=== PATIENT | female | born 1970 | race Caucasian/White ===

== ENCOUNTER 2016-10-09 10:20 | Emergency (ER) | payer BC ==
[~2016-10-09] VITALS: Ht 170.2 cm; Wt 54.5 kg
[~2016-10-09 10:20] MED LIST: AUGMENTIN875 MG PO; BUSPAR5 MG PO; DELTASONE20 M1 PO; LORTAB 5-325 M1 EACH PO; TRAZODONE HCL50 MG PO; ZOFRAN ODT4 MG PO; ZOLOFT100 MG PO
[2016-10-09 11:55] LABS: EOSINOPHIL (%) 1.1 % (0-5); EOSINOPHIL COUNT 0.1 K/uL (0-0.3); HEMATOCRIT 40.1 % (36.0-46.0); IMMATURE GRANULOCYTE (%) 0.1 % (0.0-0.7); INSTRUMENT ABS NEUTROPHIL CT 5.4 K/uL; LYMPHOCYTE COUNT 1.7 K/uL (1.0-2.8); MCH 29.2 PG (29.0-34.0); MCHC 33.9 G/DL (30.0-36.0); MCV 86.1 FL (83-99); MONOCYTE (%) 5.1 % (3-12); MONOCYTE COUNT 0.4 K/uL (0-0.8); NEUTROPHIL (%) 71.6 % (45-76); NEUTROPHIL COUNT 5.4 K/uL (1.8-6.4); PLATELET COUNT 276 K/uL (156-360); RBC DIS.WIDTH-CV 12.9 % (11.8-14.6); RBC DIS.WIDTH-SD 40.2 % (39-53); RED BLOOD COUNT 4.66 M/uL (3.80-5.20); WHITE BLOOD COUNT 7.6 K/uL (4.1-10.2)
[2016-10-09 12:05] LABS: CHLORIDE 105 mEq/L (99-109)
[2016-10-09 12:06] LABS: POTASSIUM 3.5 mEq/L (3.7-5.4); SODIUM 140 mEq/L (136-147)
[2016-10-09 12:08] LABS: GLUCOSE 113 mg/dL (70-99)
[2016-10-09 12:09] LABS: ANION GAP 15 MEQ/L (2-14)
[2016-10-09 12:10] LABS: TOTAL BILIRUBIN 0.6 mg/dL (0.0-1.0)
[2016-10-09 12:11] LABS: ALKALINE PHOSPHATASE 64 IU/L (3-129); GFR ESTIMATE (CALCULATED) > 59 mL/min/
[2016-10-09 12:13] LABS: UREA NITROGEN (BUN) 16 mg/dL (9-23)
[2016-10-09 12:15] LABS: LIPASE 38 U/L (1.0-51.0)
[2016-10-09 12:22] LABS: QUANTITATIVE HCG < 4.0 MIU/ML
[2016-10-09 14:42] LABS: ADD MIUA? YES; BILIRUBIN NEGATIVE; BLOOD NEGATIVE; COLOR YELLOW ((YELLOW)); GLUCOSE (STRIP) NEGATIVE; KETONES 5; LEUKOCYTES TRACE; NITRITE NEGATIVE; PROTEIN (STRIP) NEGATIVE; SPECIFIC GRAVITY 1.044 (1.000-1.030); UROBILINOGEN 0.2 MG/DL (0.2-1.0)
[2016-10-09 14:57] LABS: BACTERIA RARE /HPF; EPITHELIAL CELLS 2+ /HPF; MUCUS TRACE /LPF; RED BLOOD CELLS NONE SEEN /HPF (0-5); WHITE BLOOD CELLS 0-5 /HPF (0-5)
[2016-10-09] MEDS ORDERED: ZOFRAN ODT4 MG PO (20:10)
[2016-10-09 20:49] VITALS: BP 111/58
[2016-10-10] MEDS ORDERED: ZOFRAN4 MG PO (17:33)
== END 2016-10-09 20:51 | disposition home or self-care (01) ==
LOC: EME → EDBD 10:20 → EME 20:51
PROVIDERS: Emergency Medicine
DX: D25.9 Leiomyoma of uterus, unspecified (principal); R10.31 Right lower quadrant pain; R11.2 Nausea with vomiting, unspecified; R30.0 Dysuria; Z79.52 Long term (current) use of systemic steroids
CPT/HCPCS: 74177; 80053; 81003; 83605; 83690; 84702; 85025; 99281; 99285; J2270; J2405; J7030

== ENCOUNTER 2016-10-10 09:49 | Emergency (ER) | payer BC ==
[~2016-10-10] VITALS: Ht 170.2 cm; Wt 55.1 kg
[2016-10-10 10:55] LABS: EOSINOPHIL COUNT 0.1 K/uL (0-0.3); HEMATOCRIT 37.5 % (36.0-46.0); IMMATURE GRANULOCYTE (%) 0.5 % (0.0-0.7); INSTRUMENT ABS NEUTROPHIL CT 3.8 K/uL; LYMPHOCYTE COUNT 1.6 K/uL (1.0-2.8); MCH 29.6 PG (29.0-34.0); MCHC 34.1 G/DL (30.0-36.0); MCV 86.6 FL (83-99); MEAN PLAT.VOLUME 10.4 uM^3 (9.5-12.4); MONOCYTE (%) 5.5 % (3-12); MONOCYTE COUNT 0.3 K/uL (0-0.8); NEUTROPHIL (%) 64.2 % (45-76); NEUTROPHIL COUNT 3.8 K/uL (1.8-6.4); PLATELET COUNT 260 K/uL (156-360); RBC DIS.WIDTH-CV 12.8 % (11.8-14.6); RBC DIS.WIDTH-SD 40.6 % (39-53); RED BLOOD COUNT 4.33 M/uL (3.80-5.20); WHITE BLOOD COUNT 5.9 K/uL (4.1-10.2)
[2016-10-10 11:48] LABS: ALKALINE PHOSPHATASE 53 IU/L (3-129); ANION GAP 11 MEQ/L (2-14); CHLORIDE 106 MEQ/L (99-109); GFR ESTIMATE (CALCULATED) > 59 mL/min/; GLUCOSE 97 mg/dL (70-99); LIPASE 21 U/L (1.0-51.0); POTASSIUM 3.4 MEQ/L (3.7-5.4); SAMPLE HEMOLYSIS CHECK 0; SAMPLE ICTERIC CHECK 0; SAMPLE LIPEMIA CHECK 0; SODIUM 139 MEQ/L (136-147); TOTAL BILIRUBIN 0.6 MG/DL (0.0-1.0); UREA NITROGEN (BUN) 7 mg/dL (9-23)
[2016-10-10 12:51] LABS: ADD MIUA? YES; BILIRUBIN NEGATIVE; BLOOD NEGATIVE; COLOR COLORLESS ((YELLOW)); GLUCOSE (STRIP) NEGATIVE; KETONES 20; LEUKOCYTES TRACE; NITRITE NEGATIVE; PROTEIN (STRIP) NEGATIVE; SPECIFIC GRAVITY 1.005 (1.000-1.030); UROBILINOGEN 0.2 MG/DL (0.2-1.0)
[2016-10-10 13:01] LABS: BACTERIA RARE /HPF; EPITHELIAL CELLS 1+ /HPF; MUCUS NONE SEEN /LPF; RED BLOOD CELLS 0-5 /HPF (0-5); WHITE BLOOD CELLS 0-5 /HPF (0-5)
[2016-10-10] MEDS ORDERED: ZOFRAN4 MG PO (17:33)
[2016-10-10 17:59] VITALS: BP 106/73
== END 2016-10-10 18:00 | disposition home or self-care (01) ==
LOC: EME 09:49
PROVIDERS: Emergency Medicine
DX: R10.31 Right lower quadrant pain (principal); D25.9 Leiomyoma of uterus, unspecified; R11.2 Nausea with vomiting, unspecified; R42 Dizziness and giddiness; Z79.52 Long term (current) use of systemic steroids
CPT/HCPCS: 74177; 76856; 80053; 81003; 83605; 83690; 85025; 99281; 99285; J1885; J2270; J2405; J7030

== ENCOUNTER 2017-02-07 05:33 | Day surgery (SDC) | payer BC ==
[~2017-02-07] VITALS: Ht 170.2 cm; Wt 54.1 kg
[~2017-02-07 05:33] MED LIST changes: +ZOFRAN4 MG PO
[2017-02-07 07:05] VITALS: BP 105/58
[2017-02-07 16:35] VITALS: BP 107/55
[2017-02-07 20:07] VITALS: BP 114/55
[2017-02-07 23:06] VITALS: BP 117/56
[2017-02-08 03:15] VITALS: BP 99/55
[2017-02-08 06:50] VITALS: BP 134/60
[2017-02-08 07:13] LABS: EOSINOPHIL (%) 0.2 % (0-5); HEMATOCRIT 36.3 % (36.0-46.0); IMMATURE GRANULOCYTE (%) 0.2 % (0.0-0.7); INSTRUMENT ABS NEUTROPHIL CT 8.3 K/uL; LYMPHOCYTE COUNT 2.9 K/uL (1.0-2.8); MCH 29.2 PG (29.0-34.0); MCHC 33.3 G/DL (30.0-36.0); MCV 87.7 FL (83-99); MEAN PLAT.VOLUME 10.3 uM^3 (9.5-12.4); MONOCYTE (%) 6.4 % (3-12); MONOCYTE COUNT 0.8 K/uL (0-0.8); NEUTROPHIL (%) 69.1 % (45-76); NEUTROPHIL COUNT 8.3 K/uL (1.8-6.4); PLATELET COUNT 227 K/uL (156-360); RBC DIS.WIDTH-CV 12.9 % (11.8-14.6); RBC DIS.WIDTH-SD 41.4 % (39-53); RED BLOOD COUNT 4.14 M/uL (3.80-5.20); WHITE BLOOD COUNT 12.1 K/uL (4.1-10.2)
[2017-02-08] MEDS ORDERED: MINIVELLE1 EACH TD (08:30)
[2017-02-08] MEDS ORDERED: MOTRIN800 MG PO (08:31)
[2017-02-08] MEDS ORDERED: ZOFRAN4 MG PO (08:32)
[2017-02-08] MEDS ORDERED: HYDROCODON-ACE1 EAC9 PO (08:34)
== END 2017-02-08 09:47 | disposition home or self-care (01) ==
LOC: SDC 05:33 → 2EASTP 10:59 → 2SOUTH 10:59 → SDC 14:37 → 2EASTP 16:23
PROVIDERS: Obstetrics & Gynecology
DX: N94.6 Dysmenorrhea, unspecified (principal); N72 Inflammatory disease of cervix uteri; D25.1 Intramural leiomyoma of uterus; N83.01 Follicular cyst of right ovary; N92.0 Excessive and frequent menstruation with regular cycle; N80.1 Endometriosis of ovary; N80.3 Endometriosis of pelvic peritoneum; I25.2 Old myocardial infarction; F31.9 Bipolar disorder, unspecified; F10.21 Alcohol dependence, in remission; Z81.1 Family history of alcohol abuse and dependence; Z81.8 Family history of other mental and behavioral disorders; Z83.3 Family history of diabetes mellitus; Z82.3 Family history of stroke; Z88.2 Allergy status to sulfonamides; Z88.8 Allergy status to other drugs, medicaments and biological substances
CPT/HCPCS: 85025; 86900; 86901; 88304; 88307; G0378; J0330; J0690; J1100; J1170; J1885; J2405; J2710; J3010; J7120